=== PATIENT | female | born 1965 | race Asian ===

== ENCOUNTER 2020-03-24 09:58 | Emergency (ER) | payer BC, SELFPAY ==
[2020-03-24 10:24] VITALS: BP 145/87; PULSE 70; RESP 16; TEMP 36.7; O2SAT 100
--- NOTE | 2020-03-24 10:24 | ED.BACK ---
HPI - Back Pain/Injury General Chief Complaint: Back Pain/Injury Stated Complaint: back pain Time Seen by Provider: 03/24/20 10:25 Source: patient Mode of arrival: ambulatory Limitations: no limitations History of Present Illness HPI Narrative: Emelyn Miranda is a 54 yo female comes to express care with lower back pain, R sided that runs into R leg. Saw Chiropractor yesterday with no improvement in lower back pain. Pain initially started in December - has tried stretching and yoga also Related Data Allergies Allergy/AdvReac Type Severity Reaction Status Date / Time Sulfa (Sulfonamide Allergy Mild Hives Verified 03/24/20 10:25 Antibiotics) MONTEL[place]AST SODIUM Allergy Mild Hives Uncoded 03/24/20 10:25 Review of Systems Review of Systems: Narrative: CONSTITUTIONAL: Denies fever, chills, sweats. EYES: Denies visual changes, redness, discharge. ENT: Denies rhinorrhea, congestion, sore throat, otalgia. CARDIOVASCULAR: Denies chest pain, palpitations, edema. RESPIRATORY: Denies dyspnea, wheezing, cough GASTROINTESTINAL: Denies abdominal pain, nausea, vomiting, diarrhea. GENITOURINARY: Denies dysuria, hematuria, abnormal discharge SKIN: Denies rash or itching. NEUROLOGIC: Denies numbness, or focal weakness. PSYCHIATRIC: Denies anxiety or depression. Lower back pain PMFSH Family History Family History (Updated 03/24/20 @ 10:37 by Kami Miranda CNP) Other Hypertension Social History Social History (Updated 03/24/20 @ 10:37 by Kami Miranda CNP) Smoking status: Never smoker Alcohol intake: current Gender identity (if verbalized by the patient): Female Comments At time of signature, I agree with nursing past medical, surgical, social and family history. There is no relevant family history pertinent to the presenting complaint. Blood pressure is elevated; may be due to back pain but should follow-up with PCP Exam Narrative: Exam Narrative: GENERAL: This is a well-nourished, well-developed patient, in mild distress. HEAD: normocephalic, atraumatic. EYES: PERRL. Sclera clear/white. Vision is grossly intact. EARS: External ears normal, auditory canals clear and without drainage, TMs normal without perforation. Hearing grossly intact. NOSE: External nose normal without nasal discharge, nares without redness, no rhinorrhea. THROAT: Mucous membranes moist, posterior pharynx NECK: Neck supple, non-tender CARDIOVASCULAR: Regular rate and rhythm without murmurs, gallops, or rubs. RESPIRATORY: Clear to auscultation. Breath sounds equal bilaterally. No wheezes, rales, or rhonchi. GASTROINTESTINAL: Abdomen soft, non-tender, SKIN: warm, intact with no suspicious lesions or rash, good texture and turgor. NEURO: awake, alert, and oriented to person, place and time. There were no obvious focal neurologic abnormalities. Steady gait EXTREMITIES: Normal range of motion. BACK: tender without deformity; Limited (<90 degrees) ability to bend forward without pain Course Course Emergency Course: Started on baclofen Adjusted dosage of ibuprofen patient is taking at home and discussed use of food with dosing 3 times daily Needs to get PCP for follow-up. Continue with chiropractor Vital Signs Vital signs: Vital Signs Temperature 98.0 F 03/24/20 10:24 Pulse Rate 70 03/24/20 10:24 Respiratory Rate 16 03/24/20 10:24 Blood Pressure 145/87 H 03/24/20 10:24 Pulse Oximetry 100 03/24/20 10:24 Temperature 98.0 F 03/24/20 10:24 Pulse Rate 70 03/24/20 10:24 Respiratory Rate 16 03/24/20 10:24 Blood Pressure 145/87 H 03/24/20 10:24 Pulse Oximetry 100 03/24/20 10:24 MDM - Back Pain/Injury Differential Diagnosis Differential diagnosis: Likely sciatica, strain of lumbar region and other Discharge Plan Discharge Clinical Impression: Sciatica Qualifiers: Laterality: right Qualified Code(s): M54.31 - Sciatica, right side Patient Disposition: Home, Self-Care Condition: Stable Instructi
== END 2020-03-24 10:45 | disposition home or self-care (01) ==
PROVIDERS: Emergency Provider Nurse Practitioner
DX: M54.41 Lumbago with sciatica, right side (principal)
CPT/HCPCS: 99213; G0463

== ENCOUNTER 2020-04-15 10:35 | Outpatient (CLI) | payer BC, SELFPAY ==
--- NOTE | ~2020-04-15 | MR_ITS ---
EXAMINATION: MR lumbar spine wo con DATE: 04/15/2020 11:38 INDICATION: Right-sided low back pain. TECHNIQUE: Magnetic resonance imaging (MRI) of the lumbar spine was performed without intravenous con trast. Sequences included sagittal T2-weighted FSE, sagittal T2-weighted FS FSE, sagittal T1-weighted FSE, and axial T2-weighted FSE. COMPARISON: None FINDINGS: There is 3 mm anterolisthesis of L4 on L5 and L5 on S1. Vertebral body heights are normal. There is mildly decreased disc height at L4-L5. The distal spinal cord signal intensity is normal. Th e conus medullaris is at T12-L1. The following disc levels are specifically discussed: L1-L2: The disc does not extend beyond the endplate margin. There is no facet joint osteoarthritis. T here is no neural foraminal stenosis. There is no central canal stenosis. L2-L3: The disc does not extend beyond the endplate margin. There is mild bilateral facet joint osteo arthritis. There is no neural foraminal stenosis. There is no central canal stenosis. L3-L4: The disc does not extend beyond the endplate margin. There is mild left facet joint osteoarthr itis. There is no neural foraminal stenosis. There is no central canal stenosis. L4-L5: The disc does not extend beyond the endplate margin. There is severe bilateral facet joint ost eoarthritis. There is mild bilateral neural foraminal stenosis. There is no central canal stenosis. L5-S1: The disc does not extend beyond the endplate margin. There is moderate right and severe left f acet joint osteoarthritis. There is mild bilateral neural foraminal stenosis. There is no central can al stenosis. IMPRESSION: 1. Mild lumbar spondylosis. Reviewed, dictated and finalized at location A. IMPRESSION: 1. Mild lumbar spondylosis.
== END 2020-04-15 10:36 | disposition home or self-care (01) ==
LOC: ANHIMG 10:39
PROVIDERS: PCP Emergency Medicine; Visit Provider Emergency Medicine
DX: M54.41 Lumbago with sciatica, right side (principal); M47.816 Spondylosis without myelopathy or radiculopathy, lumbar region
CPT/HCPCS: 72148

== ENCOUNTER 2020-04-19 13:43 | Outpatient (CLI) | payer BC, SELFPAY ==
--- NOTE | ~2020-04-19 | CT_ITS ---
EXAMINATION: CT chest wo con DATE: 04/19/2020 14:22 INDICATION: Lung nodule TECHNIQUE: Computed tomography (CT) of the chest was performed without intravenous contrast. The dose -length product (DLP) was 62.50 mGy-cm. Automated exposure control and iterative reconstruction techn ique were employed. COMPARISON: 01/13/2019, 02/09/2019 FINDINGS: The previously described to 3 mm nodules of the upper lobes have resolved. There are a few scattered new 2 to 3 mm nodules in the lungs. The lungs are free of focal airspace opacities. There i s no pleural effusion or pneumothorax. No pathologically enlarged thoracic lymph nodes are identified . The heart size is normal. There is mild thoracic spondylosis. IMPRESSION: 1. Waxing and waning tiny bilateral pulmonary nodules, most consistent with infection/inflammation. Reviewed, dictated and finalized at location A. IMPRESSION: 1. Waxing and waning tiny bilateral pulmonary nodules, most consistent with inf ection/inflammation.
== END 2020-04-19 13:44 | disposition home or self-care (01) ==
LOC: ANHIMG 13:46
PROVIDERS: PCP Emergency Medicine; Visit Provider Emergency Medicine
DX: R91.8 Other nonspecific abnormal finding of lung field (principal)
CPT/HCPCS: 71250

== ENCOUNTER → 2020-06-23 11:14 | Outpatient (CLI) | payer BC, SELFPAY ==
--- NOTE | ~2020-06-23 | DEXA_ITS ---
Bone Density Report Name: Emelyn Miranda Age: 54 Sex: Female Ethnicity: White Date of : 1965 Indication: postmenopausal; screening for osteoporosis; height loss; hysterectomy; Referring Provider: LOY RIOJAS Study: Bone densitometry was performed. Exam Date: June 23, 2020 Accession number: [id number] Bone Density: Region BMD T-score Z-score Classification AP Spine (L1-L4) 0.776 -2.5 -1.3 Osteoporosis Femoral Neck (Left) 0.609 -2.2 -1.0 Osteopenia Total Hip (Left) 0.722 -1.8 -1.0 Osteopenia Femoral Neck (Right) 0.595 -2.3 -1.1 Osteopenia Total Hip (Right) 0.691 -2.1 -1.3 Osteopenia Total Hip Mean 0.707 -2.0 -1.2 Osteopenia World Health Organization criteria for BMD impression classify patients as: Normal (T-score at or above -1.0), Osteopenia (T-score between -1.0 and -2.5), or Osteoporosis (T-score at or below -2.5). 10-year Fracture Risk: FRAX not reported because: Some T-score for Spine Total or Hip Total or Femoral Neck at or below -2.5 Clinical Information Provided by Patient: Has used the following medications: Vitamin D Has the following medical conditions: Hysterectomy Patient maximum height was 63 Menopause Age: 34 No regular weight bearing exercise Does not regularly consume dairy products Drinks caffeinated beverages Onset of menses at age 8 Number of children 3 Impression: The patient has osteoporosis, based on the Total Spine T-score. Discussion: INCREASED RISK OF FRACTURE. BONE DENSITY IS UNDESIRABLY LOW AT ONE OR MORE SKELETAL SITES, CONSISTENT WITH POSTMENOPAUSAL OSTEOPOROSIS. This patient's lowest T-score meets the World Health Organization's (WHO) criteria for osteoporosis at one or more sites (T-score -2.5 or below). In untreated patients, the risk of osteoporotic fracture increases approximately two-fold for each 1.0 SD decrease in T-score. Low bone density is not the only risk factor for fracture; also consider factors such as patient's age, frailty or poor health, risk of falling, risk of injury, previous osteoporotic fracture, family history of osteoporosis, cigarette smoking, low body weight, etc. Not everyone with low bone mineral density has osteoporosis; osteomalacia and other metabolic bone disorders should also be considered. Patients who have osteoporosis should be evaluated for specific diseases and conditions (secondary causes) that may cause or contribute to bone loss. The [place] [employer] (AACE) and National Osteoporosis Foundation (NOF) recommend pharmacologic intervention for all postmenopausal women whose T-score is in this range. The patient should follow a healthful lifestyle (good nutrition with adequate calcium and vitamin D, and appropriate weight-bearing exercise). Follow-Up: Consider a repeat BMD and Vertebral Fracture
== END ==
PROVIDERS: PCP Emergency Medicine; Visit Provider Emergency Medicine
DX: Z78.0 Asymptomatic menopausal state (principal); M85.89 Other specified disorders of bone density and structure, multiple sites; M81.0 Age-related osteoporosis without current pathological fracture
CPT/HCPCS: 77080

== ENCOUNTER 2020-09-07 06:39 | Outpatient (NON) | payer BC, SELFPAY ==
[2020-09-08 14:57] LABS: SARS-CoV-2 RNA PCR Negative
== END 2020-09-07 06:40 ==
LOC: ANHCOVIDDT 06:58
PROVIDERS: PCP Emergency Medicine; Visit Provider Emergency Medicine
DX: Z20.828 Contact with and (suspected) exposure to other viral communicable diseases (principal); B34.9 Viral infection, unspecified
CPT/HCPCS: 87635; C9803; U0003

== ENCOUNTER → 2023-06-25 11:31 | Outpatient (CLI) | payer BC, SELFPAY ==
--- NOTE | ~2023-06-25 | MMUS_ITS ---
EXAMINATION: MM diagnostic manuel BI w malcolm, US breast RT limited HISTORY: Palpable lump in the upper outer quadrant of the right breast TECHNIQUE: Craniocaudal, mediolateral, and mediolateral oblique 3-D tomosynthesis images of the [place] ts were performed and synthetic 2-D images were generated. CAD analysis was submitted and interpreted . High resolution limited right breast ultrasound was performed. COMPARISON: No prior mammogram is currently available for comparison. BREAST PARENCHYMAL COMPOSITION: There are scattered areas of fibroglandular density. FINDINGS: MAMMOGRAPHIC FINDINGS: Right breast: There is a 9 mm x 7 mm oval, equal density mass with possible microlobulated margins in the anterior/middle third of the upper outer quadrant of the breast at the 10:00 location 5 cm from the nipple. Left breast: No suspicious mass, calcification, or architectural distortion are identified to suggest malignancy. ULTRASOUND: There is a 9 mm x 5 mm irregular, parallel mass with indistinct margins at the 10:30 location 3 cm fr om the nipple. The mass demonstrates posterior acoustic shadowing and no peripheral vascularity. IMPRESSION: 1. Indeterminate right breast mass. 2. Ultrasound-guided biopsy is recommended. BI-RADS category 4, suspicious findings. Reviewed, dictated and finalized at location A. IMPRESSION: 1. Indeterminate right breast mass. 2. Ultrasound-guided biopsy is recommended. BI-RADS category 4, suspicious findings.
== END ==
PROVIDERS: PCP Physician Assistant Medical; Visit Provider Physician Assistant Medical
DX: N63.11 Unspecified lump in the right breast, upper outer quadrant (principal)
CPT/HCPCS: 76642; 77062; 77066; G0279

== ENCOUNTER 2023-07-11 08:46 | Outpatient (CLI) | payer BC, SELFPAY ==
--- NOTE | ~2023-07-11 | MMUS_ITS ---
EXAMINATION: US GUIDED NEEDLE BIOPSY DATE: 07/11/2023 10:47 CDT INDICATION: 9 x 5 mm irregular solid right breast mass at 10:30 3 cm from nipple TECHNIQUE AND FINDINGS: The risks and potential benefits of the procedure were discussed with the patient, and written inform ed consent was obtained. Timeout procedure was performed. After sterile preparation of the right phu st, 1% lidocaine was utilized for local anesthesia. A 12 G spring-loaded biopsy gun needle was advanced to the edge of the region of interest from a late ral approach utilizing sonographic guidance. A total of 4 tissue core samples were obtained through the lesion. An Inrad tissue marker clip was then placed at the biopsy site. Hemostasis was achieved. A sterile bandage was applied. The patient tolerated procedure well and there was no evidence of immediate complication. The patien t was given verbal instructions prior to departing from the department. A two view mammogram was perf ormed to document tissue marker clip placement. The tissue samples were submitted to surgical patholo gy for histologic analysis. IMPRESSION: Ultrasound guided biopsy of right 10:30 o'clock breast mass with biopsy marker placement. Please refe r to pathology report for histologic analysis. Reviewed, dictated and finalized at Location A. Reviewed, dictated and finalized at location A. IMPRESSION: Ultrasound guided biopsy of right 10:30 o'clock breast mass with biopsy marker placement. Please refer to pathology report for histologic analysis.
== END 2023-07-11 08:47 | disposition home or self-care (01) ==
PROVIDERS: PCP Physician Assistant Medical; Visit Provider Physician Assistant Medical
DX: N63.10 Unspecified lump in the right breast, unspecified quadrant (principal); D24.1 Benign neoplasm of right breast
CPT/HCPCS: 19083; 88305; 88342; A4648

== ENCOUNTER 2023-12-09 12:31 | Outpatient (CLI) | payer BC, SELFPAY ==
--- NOTE | ~2023-12-09 | MMUS_ITS ---
EXAMINATION: MM diagnostic manuel RT w malcolm, US breast RT limited HISTORY: Six-month follow-up after benign right breast biopsy TECHNIQUE: Craniocaudal, mediolateral, and mediolateral oblique 3-D tomosynthesis images of the right breast were performed and synthetic 2-D images were generated. CAD analysis was submitted and interp reted. High resolution limited right breast ultrasound was performed. COMPARISON: 06/25/2023, 05/11/2020, 04/22/2019 BREAST PARENCHYMAL COMPOSITION: There are scattered areas of fibroglandular density. FINDINGS: MAMMOGRAPHIC FINDINGS: There is a stable 9 mm oval, equal density mass in the anterior/middle third of the upper-outer quadr ant of the breast at the 10:00 location, 5 cm from the nipple. An adjacent biopsy marker is noted. Ne w focal asymmetry surrounding the biopsy marker likely relates to biopsy change. No suspicious calcif ication or architectural distortion are identified. ULTRASOUND: There is a stable 9 mm x 8 mm oval, parallel, hypoechoic mass with mildly indistinct margins, no post erior features, and no internal vascularity at the 10:00 location, 3 cm from the nipple with an adjac ent biopsy marker. IMPRESSION: 1. Stable right breast mass with interval biopsy. New focal asymmetry surrounding the biopsy marker l ikely relates to biopsy change. 2. Recommend 6 month follow-up right diagnostic mammogram and ultrasound. BI-RADS category 3, probably benign findings. Reviewed, dictated and finalized at location A. INFO CONSULTANT IMPRESSION: 1. Stable right breast mass with interval biopsy. New focal asymmetry surroundi ng the biopsy marker likely relates to biopsy change. 2. Recommend 6 month follow-up right diagnostic mammogram and ultrasound. BI-RADS category 3, probably benign findings.
== END 2023-12-09 12:32 | disposition home or self-care (01) ==
LOC: ANHIMG 12:32
PROVIDERS: PCP Family Medicine; Visit Provider Family Medicine
DX: R92.8 Other abnormal and inconclusive findings on diagnostic imaging of breast (principal)
CPT/HCPCS: 76642; 77061; 77065; G0279

== ENCOUNTER → 2023-12-16 09:04 | Outpatient (REF) | payer BC, SELFPAY | LOC: ANHLAB 09:04 | PROVIDERS: PCP Family Medicine; Visit Provider Surgery | DX: L30.8 Other specified dermatitis (principal); R23.4 Changes in skin texture; L29.8 Other pruritus | CPT/HCPCS: 88305 ==

== ENCOUNTER 2024-06-19 12:12 | Outpatient (CLI) | payer BC, SELFPAY ==
--- NOTE | ~2024-06-19 | MMUS_ITS ---
EXAMINATION: MM diagnostic manuel BI w malcolm, US breast RT limited HISTORY: Benign neoplasm of the right breast TECHNIQUE: Additional 3-D tomosynthesis images of the breasts were performed and synthetic 2-D images were generated. CAD analysis was submitted and interpreted. High resolution Limited right breast ult rasound was performed. COMPARISON: Comparison to multiple prior studies sequentially, with oldest reviewed study dated 04/22. BREAST PARENCHYMAL COMPOSITION: Not dense: There are scattered areas of fibroglandular density. FINDINGS: MAMMOGRAPHIC FINDINGS: The breasts are stable. No significant change to small mass in the upper outer quadrant of the right breast with adjacent tissue marker, consistent with biopsy-proven tubular adenoma from pathology repo rt dated 07/12/2023. ULTRASOUND: Limited right breast ultrasound: At 11:00, 3 cm from the nipple there is an oval hypoechoic 5 mm mass with heterogeneous internal echo texture. There is an adjacent tissue marker. IMPRESSION: 1. Stable benign-appearing 5 mm right breast mass at 11:00, 3 cm from the nipple with adjacent tissue marker. 2. Given one year of interval stability, recommend 12 month followup bilateral mammogram and Limited right breast ultrasound BI-RADS category 3, probably benign findings. Reviewed, dictated and finalized at location B. IMPRESSION: 1. Stable benign-appearing 5 mm right breast mass at 11:00, 3 cm from the nippl e with adjacent tissue marker. 2. Given one year of interval stability, recommend 12 month followup bilateral mammogram and Limited right breast ultrasound BI-RADS category 3, probably benign findings.
== END 2024-06-19 12:13 | disposition home or self-care (01) ==
PROVIDERS: PCP Family Medicine; Visit Provider Surgery
DX: D24.1 Benign neoplasm of right breast (principal); N63.10 Unspecified lump in the right breast, unspecified quadrant; R92.8 Other abnormal and inconclusive findings on diagnostic imaging of breast
CPT/HCPCS: 76642; 77062; 77066; G0279

== ENCOUNTER 2024-12-28 10:32 | Outpatient (CLI) | payer BC, SELFPAY | END 2024-12-28 10:33 | disposition home or self-care (01) | LOC: ANHIMG 10:33 | PROVIDERS: PCP Family Medicine; Visit Provider Surgery | DX: N63.11 Unspecified lump in the right breast, upper outer quadrant (principal) | CPT/HCPCS: 76642; 77061; 77065; G0279 ==